=== PATIENT | female | born 2005 | race Caucasian/White ===

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

== ENCOUNTER → 2025-01-07 | Outpatient (CLI) | payer OTHER ==
--- NOTE | 2025-01-08 03:19 | EEG ---
ELECTROENCEPHALOGRAM REPORT PREAMBLE: This is a 19-year-old female, who presents with possible signs of seizure. The patient is having episodes for several years in which she will space out for a few seconds and will have upper/lower extremity shaking. She will feel confused afterwards. No tongue biting or incontinence of urine. The patient does have ADHD. CURRENT MEDICATIONS: 1. Strattera. 2. Zyrtec. 3. Motrin. 4. Singulair. EEG FINDINGS: This is a 21-channel digital EEG recorded with video component, utilizing 10/20 international system with referential and bipolar montages. The background consists of well-developed, well regulated, mixed frequencies of 9 hertz alpha, intermixed with some 6 to 7 hertz theta activity seen in bihemispheric region. Background is posterior dominant and is reactive to eye opening and closing. Photic driving response was seen with some flash frequencies. Hyperventilation revealed no significant abnormalities. Different stages of sleep were not clearly seen. No focal or generalized epileptiform activity was seen. IMPRESSION: This is an abnormal EEG due to background slowing, suggestive of mild encephalopathy. No focal, lateralized, or epileptiform activity was seen. If your suspicion for seizures is high, suggest prolonged, sleep-deprived EEG. MMODL / IJN: [id number] /
== END ==
LOC: NEUROMAIN 07:55
PROVIDERS: ATTEND Internal Medicine Geriatric Medicine
DX: R56.9 Unspecified convulsions (principal); F90.9 Attention-deficit hyperactivity disorder, unspecified type
CPT/HCPCS: 95816

== ENCOUNTER 2025-01-12 12:58 | Emergency (ER) | payer OTHER ==
[2025-01-12 13:03] VITALS: RESP 18
--- NOTE | 2025-01-12 13:44 | ED ---
Abdominal Pain HPI - General Source: patient, RN notes reviewed Mode of arrival: ambulatory Limitations: no limitations <Dustin Strauss - Last Filed: 01/12/25 13:43> <Jacy Cox - Last Filed: 01/12/25 23:02> - General Chief Complaint: Abdominal Pain Stated Complaint: abd pain,syncope Time Seen by Provider: 01/12/25 13:09 - History of Present Illness Initial Comments: 19-year-old female presents emergency department with chief complaint of abdominal pain. Patient states a sudden onset of right lower quadrant abdominal pain this morning. Does radiate some to her back but primarily in the front worse with any movement. She states she is severely nauseated no fevers or chills no chest pain no shortness of breath no chance last mental cycle 1 week ago states this was a normal obstacle for her she denies any urinary symptoms no change in bowel habits. (Dustin Strauss) - Related Data Home Medications Medication Instructions Recorded Confirmed Cetirizine HCl 10 mg PO DAILY 08/16/21 08/16/21 FLUoxetine HCL [PROzac] 20 mg PO DAILY 08/16/21 08/16/21 Omeprazole [PriLOSEC] 20 mg PO DAILY 08/16/21 08/16/21 Previous Rx's Medication Instructions Recorded Ibuprofen [Motrin] 600 mg PO Q8HR PRN #30 tab 08/16/21 Allergies Allergy/AdvReac Type Severity Reaction Status Date / Time No Known Allergies Allergy Verified 01/12/25 13:03 Review of Systems ROS Other: All systems not noted in ROS Statement are negative. <Dustin Strauss - Last Filed: 01/12/25 13:43> ROS Other: All systems not noted in ROS Statement are negative. <Jacy Cox - Last Filed: 01/12/25 23:02> ROS Statement: Those systems with pertinent positive or pertinent negative responses have been documented in the HPI. Past Medical History Past Medical History: No Reported History History of Any Multi-Drug Resistant Organisms: None Reported Past Surgical History: No Surgical Hx Reported Past Psychological History: ADD/ADHD, Anxiety, Bipolar, Depression, PTSD Smoking Status: Former smoker Past Alcohol Use History: None Reported Past Drug Use History: None Reported <Dustin Strauss - Last Filed: 01/12/25 13:43> General Exam Limitations: no limitations General appearance: alert, in no apparent distress Head exam: Present: atraumatic, normocephalic, normal inspection Eye exam: Present: normal appearance, PERRL, EOMI. Absent: scleral icterus, conjunctival injection, periorbital swelling ENT exam: Present: normal exam, normal oropharynx, mucous membranes moist Neck exam: Present: normal inspection, full ROM. Absent: tenderness, meningismus, lymphadenopathy Respiratory exam: Present: normal lung sounds bilaterally. Absent: respiratory distress, wheezes, rales, rhonchi, stridor Cardiovascular Exam: Present: regular rate, normal rhythm, normal heart sounds. Absent: systolic murmur, diastolic murmur, rubs, gallop, clicks GI/Abdominal exam: Present: soft, tenderness, normal bowel sounds. Absent: distended, guarding, rebound, rigid Back exam: Absent: CVA tenderness (R), CVA tenderness (L) Neurological exam: Present: alert <Dustin Strauss - Last Filed: 01/12/25 13:43> Course <Jacy Cox - Last Filed: 01/12/25 23:02> Vital Signs 01/12/25 01/12/25 13:00 17:25 Temperature 98.0 F 98.2 F Pulse Rate 79 85 Respiratory 18 18 Rate Blood Pressure 124/82 101/67 O2 Sat by Pulse 100 99 Oximetry - Reevaluation(s) Reevaluation #1: 01/12/25 15:47 My first encounter with patient. Patient resting comfortably on stretcher no signs of acute distress. Patient reports pain is controlled. Patient and patient's mother updated on CAT scan results. There is exquisite right lower quadrant abdominal tenderness upon palpation. There is no rebound or guarding. Pelvic ultrasound ordered. (Jacy Cox) Medical Decision Making - Lab Data Result diagrams: 01/12/25 13:33 01/12/25 13:33 - Radiology Data Radiology results: report reviewed, image reviewed <Jacy Cox - Last Filed: 01/12/25 23:02> - Medical Decision Making Was pt. sent in by a medical professional or institution (, PA, SOFTWARE PROJECT ENGINEER, urgent care, hospital, or correction...) When possible be specific @ -No Did you speak to anyone other than the patient for history (EMS, parent, family, police, friend...)? What history was obtained from this source @ -Patient's mother, at bedside, aiding in HPI and past medical history. Did you review nursing and triage notes (agree or disagree)? Why? @ -I reviewed and agree with nursing and triage notes Were old charts reviewed (outside hosp., previous admission, EMS record, old EKG, old radiological studies, urgent care reports/EKG's, correction records)? Report findings @ -No old charts were reviewed Differential Diagnosis (chest pain, altered mental status, abdominal pain women, abdominal pain men, vaginal bleeding, weakness, fever, dyspnea, syncope, headache, dizziness, GI bleed, back pain, seizure, CVA, palpatations, mental health, musculoskeletal)? @ -Differential Abdominal Pain Women:Appendicitis, Cholecystitis, diverticulosis, ischemic bowel, pancreatitis, hepatitis, UTI, gastroenteritis, AAA, incarcerated hernia, bowel obstruction, constipation, inflammatory bowel, hepatitis, peptic ulcer disease, splenic infarction, perforated viscus, vulvitis, ovarian torsion, PID, kidney stone, placenta abruption, this is not meant to be an all-inclusive list EKG interpreted by me (3pts min.). @ -None done X-rays interpreted by me (1pt min.). @ -None done CT interpreted by me (1pt min.). @ -CT abdomen pelvis significant for a 2.1 cm hyperdense structure to the right adnexa. Several small mesenteric lymph nodes present. Appendix is not clearly identified, no suspicious dilated tubular structure or inflammatory change of RLQ. U/S interpreted by me (1pt. min.). @ -Pelvic ultrasound showing no evidence of ovarian torsion. Right ovarian dominant follicular cyst. What testing was considered but not performed or refused? (CT, X-rays, U/S, labs)? Why? @ -None What meds were considered but not given or refused? Why? @ -None Did you discuss the management of the patient with other professionals (professionals i.e. , PA, SOFTWARE PROJECT ENGINEER, lab, RT, psych nurse, director of social services, fire department battalion chief, teacher, army senior officer, nurse case management)? Give summary @ -No Was smoking cessation discussed for >3mins.? @ -No Was critical care preformed (if so, how long)? @ -No Were there social determinants of health that impacted care today? How? (Homelessness, low income, unemployed, alcoholism, drug addiction, transportation, low edu. Level, literacy, decrease access to med. care, intermediate, rehab)? @ -No Was there de-escalation of care discussed even if they declined (Discuss DNR or withdrawal of care, Hospice)? DNR status @ -No What co-morbidities impacted this encounter? (DM, HTN, Smoking, COPD, CAD, Cancer, CVA, ARF, Chemo, Hep., AIDS, mental health diagnosis, sleep apnea, morbid obesity)? @ -None Was patient admitted / discharged? Hospital course, mention meds given and route, prescriptions, significant lab abnormalities, going to OR and other pertinent info. @ -Discharge. 19-year-old female accompanied by her mother presenting to the ER for evaluation of right lower quadrant abdominal pain. Patient signed out to me from previous shift Dustin Strauss PA-C at [address] results and disposition. CT abdomen pelvis showing a hyperdense structure to the right adnexa. Appendix is not clearly identified but there is no suspicious dilated tubular structure or inflammatory change noted to the right lower quadrant. Upon my evaluation patient resting comfortably on stretcher no signs of acute distress. Patient reporting pain is controlled currently. Abdominal exam remarkable for focal right lower quadrant abdominal tenderness. Patient updated on CT results and is agreeable to obtain pelvic ultrasound. Pelvic ultrasound showing no evidence of ovarian torsion and a right dominant follicular cyst. Patient will be discharged in stable condition with follow-up to SURVEILLANCE TECHNICIAN and PCP.Symptoms controlled in ER. Patient discharged with Tylenol 3 and Zofran starter pack. Return parameters discussed. Patient and patient's mother, at bedside, verbally expressed understanding and agreement with care plan. Case discussed with ED attending, Dr. Hitchcock. Undiagnosed new problem with uncertain prognosis? @ -No Drug Therapy requiring intensive monitoring for toxicity (Heparin, Nitro, Insulin, Cardizem)? @ -No Were any procedures done? @ -No Diagnosis/symptom? @ -Abdominal pain/ovarian cyst Acute, or Chronic, or Acute on Chronic? @ -Acute Uncomplicated (without systemic symptoms) or Complicated (systemic symptoms)? @ -Uncomplicated Side effects of treatment? @ -No Exacerbation, Progression, or Severe Exacerbation? @ -No Poses a threat to life or bodily function? How? (Chest pain, [place], PR, pneumonia, PE, COPD, DKA, ARF, appy, cholecystitis, CVA, Diverticulitis, Homicidal, Suicidal, threat to staff... and all critical care pts) @ -Low (Jacy Cox) - Lab Data Lab Results 01/12/25 01/12/25 01/12/25 Range/Units 13:33 13:33 13:45 WBC 6.52 (4.50-10.00) 10*3/uL RBC 4.78 (4.10-5.20) 10*6/uL Hgb 14.8 (12.0-15.0) g/dL Hct 42.2 (37.2-46.3) % MCV 88.3 (80.0-97.0) fL MCH 31.0 (27.0-32.0) pg MCHC 35.1 (32.0-37.0) g/dL Plt Count 255 (140-440) 10*3/uL MPV 10.2 (9.5-12.2) fL Immature Gran % (Auto) 0.3 % Neutrophils % 64.1 % Lymphocytes % 27.6 % Monocytes % 5.1 % Eosinophils % 2.3 % Basophils % 0.6 % Immature Gran # 0.02 (0.00-0.04) 10*3/uL Neutrophils # 4.18 (1.80-7.70) 10*3/uL Lymphocytes # 1.80 (0.90-5.00) 10*3/uL Monocytes # 0.33 (0.20-1.00) 10*3/uL Eosinophils # 0.15 (0.04-0.35) 10*3/uL Basophils # 0.04 (0.00-0.10) 10*3/uL Sodium 137 (137-145) mmol/L Potassium 4.0 (3.5-5.1) mmol/L Chloride 104 (98-107) mmol/L Carbon Dioxide 24 (22-30) mmol/L Anion Gap 9 mmol/L BUN 17 (7-17) mg/dL Creatinine 0.62 (0.52-1.04) mg/dL Est GFR (CKD-EPI)AfAm >90 (>60 ml/min/1.73 sqM) Est GFR (CKD-EPI)NonAf >90 (>60 ml/min/1.73 sqM) Glucose 116 H (74-99) mg/dL Calcium 9.8 (8.4-10.2) mg/dL Total Bilirubin 3.3 H (0.2-1.3) mg/dL AST 17 (14-36) U/L ALT 13 (4-34) U/L Alkaline Phosphatase 45 (38-126) U/L Total Protein 7.6 (6.3-8.2) g/dL Albumin 4.5 (3.5-5.0) g/dL Lipase 88 (23-300) U/L Urine Color Yellow Urine Appearance Cloudy H (Clear) Urine pH 6.0 (5.0-8.0) Ur Specific [place] 1.036 H (1.001-1.035) Urine Protein Trace H (Negative) Urine Glucose (UA) Negative (Negative) Urine Ketones Trace H (Negative) Urine Blood Negative (Negative) Urine Nitrite Negative (Negative) Urine Bilirubin Negative (Negative) Urine Urobilinogen 2.0 (<2.0) mg/dL Ur Leukocyte Esterase Small H (Negative) Urine RBC 1 (0-5) /hpf Urine WBC 3 (0-5) /hpf Ur Squamous Epith Cells 11 H (0-4) /hpf Urine Mucus Many H (None) /hpf Urine HCG, Qual (Not Detectd) 01/12/25 Range/Units 13:45 WBC (4.50-10.00) 10*3/uL RBC (4.10-5.20) 10*6/uL Hgb (12.0-15.0) g/dL Hct (37.2-46.3) % MCV (80.0-97.0) fL MCH (27.0-32.0) pg MCHC (32.0-37.0) g/dL Plt Count (140-440) 10*3/uL MPV (9.5-12.2) fL Immature Gran % (Auto) % Neutrophils % % Lymphocytes % % Monocytes % % Eosinophils % % Basophils % % Immature Gran # (0.00-0.04) 10*3/uL Neutrophils # (1.80-7.70) 10*3/uL Lymphocytes # (0.90-5.00) 10*3/uL Monocytes # (0.20-1.00) 10*3/uL Eosinophils # (0.04-0.35) 10*3/uL Basophils # (0.00-0.10) 10*3/uL Sodium (137-145) mmol/L Potassium (3.5-5.1) mmol/L Chloride (98-107) mmol/L Carbon Dioxide (22-30) mmol/L Anion Gap mmol/L BUN (7-17) mg/dL Creatinine (0.52-1.04) mg/dL Est GFR (CKD-EPI)AfAm (>60 ml/min/1.73 sqM) Est GFR (CKD-EPI)NonAf (>60 ml/min/1.73 sqM) Glucose (74-99) mg/dL Calcium (8.4-10.2) mg/dL Total Bilirubin (0.2-1.3) mg/dL AST (14-36) U/L ALT (4-34) U/L Alkaline Phosphatase (38-126) U/L Total Protein (6.3-8.2) g/dL Albumin (3.5-5.0) g/dL Lipase (23-300) U/L Urine Color Urine Appearance (Clear) Urine pH (5.0-8.0) Ur Specific [place] (1.001-1.035) Urine Protein (Negative) Urine Glucose (UA) (Negative) Urine Ketones (Negative) Urine Blood (Negative) Urine Nitrite (Negative) Urine Bilirubin (Negative) Urine Urobilinogen (<2.0) mg/dL Ur Leukocyte Esterase (Negative) Urine RBC (0-5) /hpf Urine WBC (0-5) /hpf Ur Squamous Epith Cells (0-4) /hpf Urine Mucus (None) /hpf Urine HCG, Qual Not Detected (Not Detectd) Disposition <Dustin Strauss - Last Filed: 01/12/25 13:43> Is patient prescribed a controlled substance at d/c from ED?: No Time of Disposition: 16:56 <Jacy Cox - Last Filed: 01/12/25 23:02> Clinical Impression: Abdominal pain, Ovarian cyst Disposition: HOME SELF-CARE Condition: Stable Instructions (If sedation given, give patient instructions): Ovarian Cyst (ED), Abdominal Pain (ED) Additional Instructions: Follow-up with PCP and SURVEILLANCE TECHNICIAN. Return to the ER for any new or worsening concerns. You may take Tylenol threes as needed for pain control. Do not take [id number] Tylenol while taking these. Referrals: Marco Vinson MD [Primary Care Provider] - 1-2 days Allison Ledezma MD [STAFF PHYSICIAN] - 1-2 days
[2025-01-12] MEDS: SODIUM CHLORIDE 0.9% 1,000 ML IV SCH (13:46)
[2025-01-12] MEDS: KETOROLAC 15 MG/ML 1 ML VIAL IVP STA (13:46)
[2025-01-12] MEDS: ONDANSETRON 4 MG/2 ML VIAL IVP STA ×2 (13:47→15:29)
[2025-01-12 14:03] LABS: Basophils # (A) 0.04 10*3/uL (0.00-0.10); Basophils % (A) 0.6 %; Eosinophils # (A) 0.15 10*3/uL (0.04-0.35); Eosinophils % (A) 2.3 %; HCT 42.2 % (37.2-46.3); HGB 14.8 g/dL (12.0-15.0); Lymphocytes % (A) 27.6 %; MCHC 35.1 g/dL (32.0-37.0); MCV 88.3 fL (80.0-97.0); Mean Platelet Volume 10.2 fL (9.5-12.2); Monocytes # (A) 0.33 10*3/uL (0.20-1.00); Monocytes % (A) 5.1 %; Neutrophils # (A) 4.18 10*3/uL (1.80-7.70); Neutrophils % (A) 64.1 %; Platelet Count 255 10*3/uL (140-440); RBC 4.78 10*6/uL (4.10-5.20); RDW 12.3 % (11.5-14.5); WBC 6.52 10*3/uL (4.50-10.00)
[2025-01-12 14:14] LABS: ALT 13 U/L (4-34); AST 17 U/L (14-36); African American GFR (CKD) >90 (>60 ml/min/1.73 sqM); Albumin 4.5 g/dL (3.5-5.0); Alkaline Phosphatase 45 U/L (38-126); Anion Gap 9 mmol/L; Blood Urea Nitrogen 17 mg/dL (7-17); Calcium 9.8 mg/dL (8.4-10.2); Carbon Dioxide 24 mmol/L (22-30); Chloride 104 mmol/L (98-107); Glucose 116 mg/dL (74-99); Lipase 88 U/L (23-300); Non-African American GFR(CKD) >90 (>60 ml/min/1.73 sqM); Sodium 137 mmol/L (137-145); Total Bilirubin 3.3 mg/dL (0.2-1.3); Total Protein 7.6 g/dL (6.3-8.2)
[2025-01-12 14:19] LABS: Appearance,Urine Cloudy (Clear); Bilirubin,Urine Negative (Negative); Blood,Urine Negative (Negative); Color,Urine Yellow; Glucose,Urine (UA) Negative (Negative); Ketones,Urine Trace (Negative); Leukocyte Esterase,Urine Small (Negative); Mucus,Urine Many /hpf; Nitrite,Urine Negative (Negative); Protein,Urine Trace (Negative); RBC,Urine 1 /hpf (0-5); Specific Gravity,Urine 1.036 (1.001-1.035); Squamous Epithelial Cell,Urine 11 /hpf (0-4); WBC,Urine 3 /hpf (0-5)
--- NOTE | 2025-01-12 15:28 | CT ---
EXAMINATION TYPE: CT abdomen pelvis w con DATE OF EXAM: 01/12/2025 2:58 PM COMPARISON: 08/16/2021 CLINICAL INDICATION: Female, 19 years old with history of abdominal pain rlq, RLQ pain, back pain TECHNIQUE: Axial images were obtained from above the diaphragm to the pubic rami in the axial plane a t 5 mm thick sections. Reconstructed images are reviewed on the computer in the coronal plane. CONTRAST: 100 mL of Isovue 300. Study performed without Oral Contrast DLP: 907.6 mGycm, Automated exposure control for dose reduction was used. FINDINGS: Limited CT sections are obtained the lung bases. The lung bases are clear. CT ABDOMEN: Liver: Normal Spleen: Normal Pancreas: Normal Adrenal glands: The adrenal glands are normal. Gallbladder: Normal Kidneys: No masses are evident. No hydronephrosis is present. No cysts are present. Delayed images were obtained through the kidneys, which remain unremarkable. Aorta: Vascular calcification is within the aorta. Inferior vena cava: Normal. CT PELVIS: Loops of bowel within the abdomen and pelvis are normal. There are loops of bowel which are incom pletely distended or lack oral contrast limiting their evaluation. Appendix: No dilated tubular structure or inflammatory change is evident. Appendix is poorly visualiz ed. Clinical management and suspected appendicitis is recommended. There may be a few small lymph nod es in the right lower quadrant. Mesenteric adenitis is not excluded. Lymph nodes are present previous ly and appears similar. Urinary bladder: Decompressed and cannot be well evaluated Genitourinary structures: There is a 2.1 cm hypodensity in the region adjacent to the cecum. This daniel ears to be an ovarian cyst. Consider pelvic ultrasound for additional evaluation. Uterus appears normal. Left adnexa is normal. No suspicious free fluid within the pelvis Osseous structures: No suspicious lytic or sclerotic lesions. IMPRESSION: 1. The appendix is not clearly identified. A suspicious dilated tubular structure or inflammatory ch torito is not evident. Clinical management of any suspected appendicitis is recommended. 2. There is a 2.1 cm hypodense structure in the right adnexa may be a right ovarian cyst. Consider fo llow-up with pelvic ultrasound. 3. There are several small mesenteric lymph nodes present. Consider mesenteric adenitis. [facility], Workstation: [facility], 01/12/2025 3:25 PM
[2025-01-12] MEDS: HYDROmorphone 0.5 MG/0.5 ML SYRINGE IVP STA ×2 (15:30→17:16)
--- NOTE | 2025-01-12 16:30 | US ---
EXAMINATION TYPE: US pelvic complete DATE OF EXAM: 01/12/2025 COMPARISON: Same day CT CLINICAL INDICATION: Female, 19 years old with history of RLQ abd pian; Pt states RLQ pain TECHNIQUE: Transabdominal (TA). Transabdominal grayscale sonographic images of the pelvis were acquired. Pt preferred not to have TV at this time. Doppler imaging: Color Doppler Images were obtained. Spectral doppler images were obtained. FINDINGS: Date of LMP: 2 weeks ago EXAM MEASUREMENTS: Uterus: 6.3 x 3.5 x 4.9 cm Endometrial Stripe: 0.8 cm Right Ovary: 3.6 x 2.6 x 3.3 cm Left Ovary: 2.1 x 2.1 x 1.5 cm 1. Uterus: Anteverted wnl 2. Endometrium: wnl 3. Right Ovary: Hypoechoic lesion as visualized on CT= 2.3 x 2.0 x 1.8 cm 4. Left Ovary: wnl Spectral, color and waveform doppler imaging shows good arterial and venous flow within the ovaries ; there is no evidence for ovarian torsion. 5. Bilateral Adnexa: wnl 6. Posterior cul-de-sac: wnl Unremarkable anteverted appearance of the uterus without focal lesion. Endometrium is within normal l imits. Dominant follicular cyst within the right ovary. Left ovary appears unremarkable. No evidence for ovarian torsion. No free fluid. IMPRESSION: 1. No ultrasound evidence for acute pelvic process. 2. Right ovarian dominant follicular cyst. No follow-up recommended. [facility], , 01/12/2025 4:28 PM
[2025-01-12] MEDS: ONDANSETRON 4 MG ODT STARTER PACK 2 TAB BTL PO STA (17:04)
[2025-01-12] MEDS: ACET/COD 300 MG/30 MG STARTER PACK 6 TAB BTL PO STA (17:05)
[2025-01-12 17:25] VITALS: BP 101/67; PULSE 85; TEMP 98.2
== END 2025-01-12 17:25 | disposition home or self-care (01) ==
LOC: EC 12:58
DX: N83.201 Unspecified ovarian cyst, right side (principal); Z87.891 Personal history of nicotine dependence
CPT/HCPCS: 99284; 96374; 96375 ×2; 96376 ×2; 96361 ×2; 36415; 80053; 83690; 85025; 81001; 81025; 93975; 76856; 74177; J2405; J1885; S0119; J1171; Q9967

== ENCOUNTER → 2025-04-02 | Outpatient (CLI) | payer OTHER ==
--- NOTE | 2025-04-09 15:06 | MR ---
EXAMINATION TYPE: MR brain wo con DATE OF EXAM: 04/02/2025 COMPARISON: NONE HISTORY: Seizures, zones out and shakes, Hearing loss bilat, weakness/numbness arms/legs, Seizures st arted 2019 TECHNIQUE: Multiplanar, multisequence imaging of the brain and brainstem is performed without IV cont rast. FINDINGS: Diffusion weighted images demonstrate no evidence of a recent infarct or other diffusion abnormality. There is no extraaxial fluid collection or significant white matter signal abnormality. The ventricu lar system and cisternal spaces are normal in size and appearance. The brain volume is age appropria te. T2 coronal images show hippocampal gyri are symmetric and felt within normal limits. Midline structures demonstrate normal morphology. The craniocervical junction appears within normal limits. Normal vascular flow voids are present. The globes are intact bilaterally. Moderate mucosal t hickening involving the ethmoid sinuses bilaterally. IMPRESSION: Chronic ethmoid sinus otherwise unremarkable study. [facility], , 04/09/2025 3:03 PM
== END | disposition home or self-care (01) ==
LOC: RADMRIMAIN 16:21
PROVIDERS: ATTEND Psychiatry & Neurology Neurology
DX: J32.2 Chronic ethmoidal sinusitis (principal)
CPT/HCPCS: 70551